=== PATIENT | female | born 1950 | race Caucasian/White ===

== ENCOUNTER 2016-12-15 22:26 | Outpatient (CLI) | payer BC | END 2016-12-15 22:27 | disposition EMS.NT | LOC: EMS 22:26 | PROVIDERS: ATTEND Surgery | DX: L29.9 Pruritus, unspecified (principal); R23.2 Flushing; R60.9 Edema, unspecified ==

== ENCOUNTER 2016-12-15 23:39 | Emergency (ER) | payer BC ==
--- NOTE | 2016-12-15 23:47 | ED Physician Documentation ---
PD HPI SKIN - Stated complaint Stated Complaint: RASH,ITCHING,TONGUE SWELLING - Chief complaint Chief Complaint: Allergic Rx - History obtained from History obtained from: Patient - History of Present Illness Timing - onset: Today Timing - duration: Hours (1) Timing - details: Abrupt onset (She had peanut butter sandwich (which she has commonly) and then a lot of pistachios, which she eats only about once a year. Then went outside to work in garden weeds/ weed wacking. She had onset of diffuse itching and then hives, and then noted feeling of swelling of her tongue. Talked with Nurse Advise and referred to ED. She took 3 tablets of Benadryl at home and is noting decreasing swelling and hives enroute/arriving here.) Location: Face, Bodywide Quality / character: Itchy, Discolored (red), Swelling, Other (associated with swelling of her tongue and some dyspnea. 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 denies: Sore throat Cardiac: denies: Chest pain / pressure, Palpitations Respiratory: denies: Cough, Wheezing GI: denies: Nausea, Vomiting Skin: reports: Rash Neurologic: denies: Near syncope PD PAST MEDICAL HISTORY - Past Medical History Cardiovascular: Hypertension Neuro: Other ([place]) Endocrine/Autoimmune: None - Past Surgical History Past Surgical History: Yes - Present Medications Home Medications: Ambulatory Orders Medication Instructions Recorded Confirmed Aspirin [Adult Low Dose Aspirin EC] 81 mg PO DAILY 06/30/15 12/15/16 Benazepril HCl [Lotensin] 20 mg PO DAILY 06/30/15 12/15/16 - Allergies Allergies/Adverse Reactions: Allergies Allergy/AdvReac Type Severity Reaction Status Date / Time Sulfa (Sulfonamide AdvReac Unknown Verified 06/30/15 18:58 Antibiotics) - Social History Does the pt smoke?: No Smoking Status: Never smoker Does the pt drink ETOH?: Yes Does the pt have substance abuse?: No - Family History Family history: reports: Non contributory - Immunizations Immunizations are current?: Yes PD ED PE NORMAL - Vitals Vital signs reviewed: Yes - General General: Alert and oriented X 3, No acute distress, Well developed/nourished - HEENT HEENT: Moist mucous membranes, Pharynx benign, Other (tongue without obvious swelling right now, but she says it feels just slightly big still. ) - Neck Neck: Supple, no meningeal sign, No adenopathy - Cardiac Cardiac: RRR, No murmur - Respiratory Respiratory: Clear bilaterally - Abdomen Abdomen: Soft, Non tender - Derm Derm: Normal color, Warm and dry, Other (mild redness in blotches, not raised, c /w improving hives. ) Results - Vitals Vitals: Vital Signs - 24 hr 12/15/16 12/16/16 23:42 00:51 Temperature 37 C Heart Rate 88 81 Respiratory 18 20 Rate Blood Pressure 161/54 H 142/76 H O2 Saturation 96 99 Oxygen O2 Source Room air PD MEDICAL DECISION MAKING - ED course Complexity details: considered differential (timing seems related to the Pistachios though she did go out working with weeds/weed whacker after that. Could be either or both as triggers. Given these likely triggers I don't think it would then be related to her BP med AMADOR-I, though I did discuss it with her as potential if recurring symptoms without other exposures. She did not want to stop it at this point. I referenced [facility]oyaMoya and did not see contraindication for short course/dose of steroids, so gave dose here. ), d/w patient Departure - Departure Disposition: 01 Home, Self Care Clinical Impression: Allergic reaction Qualifiers: Encounter type: initial encounter Qualified Code(s): T78.40XA - Allergy, unspecified, initial encounter Condition: Stable Record reviewed to determine appropriate education?: Yes Instructions: ED Allergic Reaction General Other Follow-Up: LILA HAMPTON MD [Primary Care Provider] - Comments: Avoid Pistachios certainly, and also stay out of the yardwork for a day or two, in case it was something there that triggered the reaction. Benadryl dose 25 mg every 6 hours if needed for persistent rash/itch. Recheck if not improved completely over couple of days. Discharge Date/Time: 12/16/16 00:52
[2016-12-16] MEDS ORDERED: CETIRIZINE 10 MG TABLET PO STA (00:10)
[2016-12-16] MEDS ORDERED: CETIRIZINE 10 MG TABLET ONE (00:19)
[2016-12-16] MEDS ORDERED: DEXAMETHASONE 10 MG/ML VIAL PO STA (00:34)
[2016-12-16] MEDS ORDERED: CHERRY SYRUP 10 ML UDC PO ONE (00:50)
[2016-12-16] MEDS ORDERED: DEXAMETHASONE 10 MG/ML VIAL ONE (00:50)
[2016-12-16 00:52] VITALS: BP 142/76
== END 2016-12-16 00:52 | disposition home or self-care (01) ==
LOC: ED 23:39
DX: T78.40XA Allergy, unspecified, initial encounter (principal); X58.XXXA Exposure to other specified factors, initial encounter; I10 Essential (primary) hypertension; Z79.82 Long term (current) use of aspirin
CPT/HCPCS: 99283; A9270

== ENCOUNTER 2019-08-25 11:06 | Emergency (ER) | payer MEDICARE, OTHER ==
[2019-08-25] MEDS ORDERED: BUFFERED LIDOCAINE 10 ML SYRINGE SUBQ STA (11:30)
--- NOTE | 2019-08-25 13:11 | XRAY Report ---
Reason: 5th PIP injury Procedure Date: 08/25/2019 Accession Number: [id number] / [id number] Procedure: XR - Finger(s) RT CPT Code: Final Report FULL RESULT: EXAM: RIGHT FIFTH DIGIT RADIOGRAPHY EXAM DATE: 08/25/2019 12:26 PM. CLINICAL HISTORY: 5th PIP injury. COMPARISON: None. TECHNIQUE: 3 views. FINDINGS: Bones: Normal. No fracture or bone lesion. Joints: There appears to be postinflammatory fusion across the fifth DIP joint. Joint space narrowing and marginal arthrosis at the fifth PIP joint. Soft Tissues: Surrounding soft tissue swelling. No radiopaque foreign material. IMPRESSION: Postinflammatory fusion across the DIP joint. Joint space narrowing and marginal arthrosis at the fifth PIP joint. Surrounding soft tissue swelling. No radiopaque foreign material. RADIA
--- NOTE | 2019-08-25 13:20 | ED Physician Documentation ---
PD HPI UPPER EXT INJURY - Stated complaint Stated Complaint: LAC ON R WRIST - Chief complaint Chief Complaint: Laceration - History obtained from History obtained from: Patient - History of Present Illness Location: Right, Wrist Type of injury: Fall Where injury occurred: Home Timing - onset: Today Timing - duration: Minutes Timing - details: Abrupt onset, Still present Improved by: Rest, Immobilization Worsened by: Moving, Palpating Associated symptoms: No: Weakness, Numbness, Tingling Contributing factors: No: Anticoagulated Similar symptoms before: Diagnosis (laceration) Recently seen: Not recently seen - Additonal information Additional information: 68-year-old female fell in her garden today injuring her right wrist and her right fifth digit. She has a laceration to the wrist she is able flex and extend the wrist without difficulty has no pain to the wrist joint itself. There is swelling and tenderness to the right fifth digit she thought this was her arthritis until she looked at the finger and saw the swelling and discoloration. 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 : Other HEENT: None Musculoskeletal: None Derm: None - Past Surgical History Past Surgical History: Yes - Present Medications Home Medications: Ambulatory Orders Medication Instructions Recorded Confirmed Aspirin [Adult Low Dose Aspirin EC] 81 mg PO DAILY 06/30/15 12/15/16 Benazepril HCl [Lotensin] 20 mg PO DAILY 06/30/15 12/15/16 - Allergies Allergies/Adverse Reactions: Allergies Allergy/AdvReac Type Severity Reaction Status Date / Time Sulfa (Sulfonamide AdvReac Unknown Verified 08/25/19 11:16 Antibiotics) - Social History Does the pt smoke?: No Smoking Status: Never smoker Does the pt drink ETOH?: Yes Does the pt have substance abuse?: No - Immunizations Immunizations are current?: Yes PD ED PE NORMAL - Vitals Vital signs reviewed: Yes (hypertensive ) - General General: Alert and oriented X 3, No acute distress, Well developed/nourished - HEENT HEENT: Atraumatic, PERRL, EOMI - Respiratory Respiratory: No respiratory distress - Derm Derm: Normal color, Warm and dry, No rash - Extremities Extremities: Other (There is swelling and ecchymosis to the right fifth PIP joint. She is able to flex at that joint and the distal neurovascular components are intact. She has specifically pain to the lateral aspect of the joint and the MCP joint is without injury. 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 Joint space narrowing and marginal arthrosis at the fifth PIP joint. Surrounding soft tissue swelling. No radiopaque foreign material.), EMP read indepedently, See rad report Procedures - Laceration (location) Right wrist Length in cm: 3 Wound type: Linear, Into subcut fat, Clean Neurovascular status: Sensory intact, Motor intact, Vascular intact Tendon involvement: Tendon intact Anesthesia: Lidocaine 1%, With bicarb Wound Preparation: Hibiclens, Irrigated copiously NS, Wound explored, To the base Skin layer closure: Nylon, Interrupted, Size #-0 - enter number (4-0) Other: Patient tolerated well, No complications, Neurovascular intact, Dressing applied, Tetanus UTD Complexity: Simple PD MEDICAL DECISION MAKING - ED course Complexity details: reviewed results, re-evaluated patient, considered differential, d/w patient ED course: 68-year-old female with a fall and injury to her right wrist and fifth digit has no evidence of fracture on x-ray examination of the digit and her wound is sutured with 4-0 nylon. She tolerates this well believes she is up-to-date on her tetanus. Departure - Departure Disposition: 01 Home, Self Care Clinical Impression: Laceration of right wrist Qualifiers: Encounter type: initial encounter Qualified Code(s): S61.511A - Laceration without foreign body of right wrist, initial encounter Sprain of finger, right Qualifiers: Encounter type: initial encounter Finger: little finger Sprain of finger site: interphalangeal joint Qualified Code(s): S63.636A - Sprain of interphalangeal joint of right little finger, initial encounter Condition: Stable Instructions: ED Laceration Hand, ED Sprain Finger Follow-Up: Rafat Soliman MD [Primary Care Provider] - Comments: Sutures will need to be removed in 7 to 10 days. Discharge Date/Time: 08/25/19 13:31
[2019-08-25 13:31] VITALS: BP 178/84
== END 2019-08-25 13:31 | disposition home or self-care (01) ==
LOC: ED 11:06
DX: S61.511A Laceration without foreign body of right wrist, initial encounter (principal); S63.636A Sprain of interphalangeal joint of right little finger, initial encounter; W01.118A Fall on same level from slipping, tripping and stumbling with subsequent striking against other sharp object, initial encounter; W26.8XXA Contact with other sharp object(s), not elsewhere classified, initial encounter; Y93.H2 Activity, gardening and landscaping; Y92.009 Unspecified place in unspecified non-institutional (private) residence as the place of occurrence of the external cause; I10 Essential (primary) hypertension
CPT/HCPCS: 12002; 73140; 99283; 99284

== ENCOUNTER 2020-09-15 08:00 | Outpatient (CLI) | payer MEDICARE, OTHER | END 2020-09-15 23:59 | disposition home or self-care (01) | LOC: LAB.S 08:00 | PROVIDERS: ATTEND Physician Assistant Medical | DX: N39.0 Urinary tract infection, site not specified (principal); R31.9 Hematuria, unspecified; R30.0 Dysuria | CPT/HCPCS: 87077; 87086; 87181 ==

== ENCOUNTER 2020-10-11 08:00 | Outpatient (CLI) | payer MEDICARE, OTHER | END 2020-10-11 23:59 | disposition home or self-care (01) | LOC: LAB.S 08:00 | PROVIDERS: ATTEND Physician Assistant Medical | DX: N39.0 Urinary tract infection, site not specified (principal); R30.0 Dysuria; R31.9 Hematuria, unspecified | CPT/HCPCS: 87086; 87181 ==

== ENCOUNTER 2021-03-28 15:30 | Outpatient (CLI) | payer MEDICARE, OTHER ==
--- NOTE | 2021-03-28 16:42 | Ultrasound Report ---
PROCEDURE: Ext Limited Non Vascular INDICATIONS: SKIN MASS OF LEG TECHNIQUE: Real-time scanning was performed of the left upper thigh, with image documentation. COMPARISON: None. FINDINGS: Multiple grayscale and color Doppler images were acquired over the palpable area of smita zapata concern noted to be in the anterior, superior left thigh. There is a superficial, subcutaneous isoe choic mass measuring 2.9 cm in long axis dimension and 2.4 x 1.0 cm in transverse dimension. This is wider than tall without posterior acoustic features. No disturbed parenchymal echotexture. Peripheral vascularity present. 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 Recommend continued clinical surveillance with follow-up imaging as clinically necessary. Reviewed by: Kolton Tavera MD on 03/28/2021 4:41 PM PST Approved by: Kolton Tavera MD on 03/28/2021 4:41 PM PST Station ID: [id number]
== END 2021-03-28 15:31 | disposition home or self-care (01) ==
LOC: DI 15:30
PROVIDERS: ATTEND Internal Medicine
DX: R22.42 Localized swelling, mass and lump, left lower limb (principal)

== ENCOUNTER 2021-05-15 16:48 | Outpatient (CLI) | payer MEDICARE, OTHER ==
[2021-05-15 21:15] LABS: BASOPHILS # (AUTO) 0.1 10^3/uL (0.0-0.1); EOSINOPHILS # (AUTO) 0.2 10^3/uL (0.0-0.7); HCT - HEMATOCRIT 44.8 % (37.0-47.0); HGB - HEMOGLOBIN 14.7 g/dL (12.0-16.0); LYMPHOCYTES # (AUTO) 2.1 10^3/uL (1.5-3.5); LYMPHOCYTES % (AUTO) 26.9 %; MEAN CORPUSCULAR HEMOGLOBIN 28.7 pg (27.0-31.0); MEAN CORPUSCULAR HGB CONC 32.8 g/dL (32.0-36.0); MEAN CORPUSCULAR VOLUME 87.3 fL (81.0-99.0); MEAN PLATELET VOLUME 10.5 fL (7.9-10.8); MONOCYTES # (AUTO) 0.5 10^3/uL (0.0-1.0); MONOCYTES % (AUTO) 6.6 %; NEUTROPHILS # (AUTO) 4.8 10^3/uL (1.5-6.6); NEUTROPHILS % (AUTO) 62.2 %; PLT - PLATELET COUNT 254 10^3/uL (130-450); RED BLOOD COUNT 5.13 10^6/uL (4.20-5.40); RED CELL DISTRIBUTION WIDTH 13.2 % (12.0-15.0); WHITE BLOOD COUNT 7.6 x10^3/uL (4.8-10.8)
[2021-05-15 21:16] LABS: FOLATE 7.7 ng/mL (5.90 - >24.8); THYROID STIMULATING HORMONE 2.74 uIU/mL (0.34-5.60)
== END 2021-05-15 16:49 | disposition home or self-care (01) ==
LOC: LAB 16:48
PROVIDERS: ATTEND Internal Medicine
DX: R53.1 Weakness (principal)
CPT/HCPCS: 36415; 82607; 82746; 84443; 85025

== ENCOUNTER 2021-06-12 14:56 | Outpatient (CLI) | payer MEDICARE, OTHER ==
[2021-06-13 11:28] LABS: ESTIMATED AVERAGE GLUCOSE 148 mg/dL (70-100); HEMOGLOBIN A1c% 6.8 % (4.27-6.07)
== END 2021-06-12 14:57 | disposition home or self-care (01) ==
LOC: LAB.S 14:56
PROVIDERS: ATTEND Internal Medicine
DX: M79.672 Pain in left foot (principal); R73.03 Prediabetes
CPT/HCPCS: 36415; 83036

== ENCOUNTER 2021-08-22 08:00 | Outpatient (CLI) | payer MEDICARE, OTHER ==
[2021-08-22 14:44] LABS: BASOPHILS # (AUTO) 0.1 10^3/uL (0.0-0.1); BASOPHILS % (AUTO) 1.2 %; EOSINOPHILS # (AUTO) 0.3 10^3/uL (0.0-0.7); EOSINOPHILS % (AUTO) 3.9 %; HCT - HEMATOCRIT 44.1 % (37.0-47.0); HGB - HEMOGLOBIN 14.2 g/dL (12.0-16.0); LYMPHOCYTES # (AUTO) 1.7 10^3/uL (1.5-3.5); LYMPHOCYTES % (AUTO) 23.2 %; MEAN CORPUSCULAR HEMOGLOBIN 28.3 pg (27.0-31.0); MEAN CORPUSCULAR HGB CONC 32.2 g/dL (32.0-36.0); MEAN CORPUSCULAR VOLUME 87.8 fL (81.0-99.0); MONOCYTES # (AUTO) 0.6 10^3/uL (0.0-1.0); MONOCYTES % (AUTO) 7.7 %; NEUTROPHILS # (AUTO) 4.6 10^3/uL (1.5-6.6); NEUTROPHILS % (AUTO) 63.7 %; PLT - PLATELET COUNT 289 10^3/uL (130-450); RED BLOOD COUNT 5.02 10^6/uL (4.20-5.40); RED CELL DISTRIBUTION WIDTH 13.3 % (12.0-15.0); WHITE BLOOD COUNT 7.3 x10^3/uL (4.8-10.8)
[2021-08-22 15:00] LABS: ALBUMIN 3.8 g/dL (3.2-5.5); ALBUMIN/GLOBULIN RATIO 1.2 (1.0-2.2); ALKALINE PHOSPHATASE 81 IU/L (42-121); ALT ALANINE AMINOTRANSFERASE 22 IU/L (10-60); AST ASPARTATE AMINOTRANSFERASE 18 IU/L (10-42); BILIRUBIN,TOTAL 0.9 mg/dL (0.2-1.0); BUN - BLOOD UREA NITROGEN 15 mg/dL (6-20); CALCIUM 9.3 mg/dL (8.5-10.3); CARBON DIOXIDE - CO2 30 mmol/L (21-32); CHLORIDE 100 mmol/L (101-111); CREATININE 0.9 mg/dL (0.4-1.0); GFR - MDRD 62 (>89); GLUCOSE 123 mg/dL (70-100); LIPASE 67 U/L (22-51); SODIUM 139 mmol/L (135-145); TOTAL PROTEIN 7.1 g/dL (6.7-8.2)
[2021-08-22 15:13] LABS: CRP - C-REACTIVE PROTEIN < 1.0 mg/dL (0-1.0)
== END 2021-08-22 23:59 | disposition home or self-care (01) ==
LOC: LAB.S 08:00
PROVIDERS: ATTEND Registered Nurse
DX: R53.81 Other malaise (principal); R53.83 Other fatigue; R30.0 Dysuria; R10.84 Generalized abdominal pain
CPT/HCPCS: 36415; 80053; 83690; 85025; 85651; 86140; 87086

== ENCOUNTER 2022-01-30 17:20 | Outpatient (CLI) | payer MEDICARE, OTHER | END 2022-01-30 17:21 | disposition EMS.NT | LOC: EMS 17:20 | DX: R19.7 Diarrhea, unspecified (principal); R42 Dizziness and giddiness; U07.1 COVID-19 ==

== ENCOUNTER 2022-05-09 07:00 | Outpatient (CLI) | payer MEDICARE, OTHER ==
[2022-05-09 16:53] LABS: BILIRUBIN,URINE NEGATIVE (NEGATIVE); GLUCOSE, URINE (UA) NEGATIVE (NEGATIVE); KETONES,URINE (UA) NEGATIVE (NEGATIVE); LEUKOCYTE ESTERASE, URINE SMALL (NEGATIVE); NITRITE,URINE NEGATIVE (NEGATIVE); OCCULT BLOOD,URINE NEGATIVE (NEGATIVE); PROTEIN,URINE NEGATIVE (NEGATIVE); UROBILINOGEN,URINE 0.2 (NORMAL) E.U./dL (NORMAL)
[2022-05-09 16:56] LABS: CLARITY,URINE CLEAR (CLEAR)
[2022-05-09 17:15] LABS: BACTERIA,URINE Few /HPF (None Seen); RBC,URINE 0-5 /HPF (0-5); SQUAMOUS EPITHELIAL CELL,UR RARE Squamous (<= Few)
== END 2022-05-09 23:59 | disposition home or self-care (01) ==
LOC: LAB.S 07:00
PROVIDERS: ATTEND Emergency Medicine
DX: R30.0 Dysuria (principal)
CPT/HCPCS: 81001; 87077; 87086; 87181

== ENCOUNTER 2023-01-12 08:00 | Outpatient (CLI) | payer MEDICARE, OTHER | END 2023-01-12 23:59 | disposition home or self-care (01) | LOC: LAB.S 08:00 | PROVIDERS: ATTEND Physician Assistant | DX: R30.0 Dysuria (principal) | CPT/HCPCS: 87086; 87181 ==

== ENCOUNTER 2023-03-01 08:00 | Outpatient (CLI) | payer MEDICARE, OTHER | END 2023-03-01 23:59 | disposition home or self-care (01) | LOC: LAB 08:00 | PROVIDERS: ATTEND Physician Assistant | DX: R30.0 Dysuria (principal) | CPT/HCPCS: 87086; 87181 ==

== ENCOUNTER 2023-03-22 08:00 | Outpatient (CLI) | payer MEDICARE, OTHER ==
--- NOTE | 2023-03-22 11:22 | XRAY Report ---
PROCEDURE: Knee 3 View RT INDICATIONS: RT KNEE PAIN TECHNIQUE: 3 views of the knee(s) were acquired. COMPARISON: None. FINDINGS: Bones: No fractures or dislocations. No suspicious bony lesions. Tricompartment osteophytosis. Se shaunna medial compartment joint space loss. Soft tissues: Trace knee joint effusion. No suspicious soft tissue calcifications or masses. IMPRESSION: No acute bony abnormality. Severe degenerative arthritis of the right knee. Reviewed by: Santosh Denis MD on 03/22/2023 11:21 AM PST Approved by: Santosh Denis MD on 03/22/2023 11:21 AM PST Station ID: [id number]
[2023-03-22 15:31] LABS: BILIRUBIN,URINE NEGATIVE (NEGATIVE); GLUCOSE, URINE (UA) NEGATIVE (NEGATIVE); KETONES,URINE (UA) NEGATIVE (NEGATIVE); LEUKOCYTE ESTERASE, URINE NEGATIVE (NEGATIVE); NITRITE,URINE NEGATIVE (NEGATIVE); OCCULT BLOOD,URINE NEGATIVE (NEGATIVE); PH,URINE 6.5 PH (5.0-7.5); PROTEIN,URINE NEGATIVE (NEGATIVE); UROBILINOGEN,URINE 0.2 (NORMAL) E.U./dL (NORMAL)
[2023-03-22 15:42] LABS: BACTERIA,URINE Rare /HPF (None Seen); CLARITY,URINE CLEAR (CLEAR); RBC,URINE 0-5 /HPF (0-5); SQUAMOUS EPITHELIAL CELL,UR MOD Squamous (<= Few); WBC,URINE 0-3 /HPF (0-5)
== END 2023-03-22 23:59 | disposition home or self-care (01) ==
LOC: DI.S 08:00
PROVIDERS: ATTEND Physician Assistant Medical
DX: M17.11 Unilateral primary osteoarthritis, right knee (principal); R39.15 Urgency of urination
CPT/HCPCS: 81001; 87086

== ENCOUNTER 2023-09-11 13:08 | Outpatient (CLI) | payer MEDICARE, OTHER ==
[2023-09-11 19:37] LABS: BASOPHILS # (AUTO) 0.1 10^3/uL (0.0-0.1); BASOPHILS % (AUTO) 1.1 %; EOSINOPHILS # (AUTO) 0.2 10^3/uL (0.0-0.7); EOSINOPHILS % (AUTO) 2.3 %; HCT - HEMATOCRIT 46.2 % (37.0-47.0); HGB - HEMOGLOBIN 14.5 g/dL (12.0-16.0); LYMPHOCYTES # (AUTO) 2.2 10^3/uL (1.5-3.5); LYMPHOCYTES % (AUTO) 27.8 %; MEAN CORPUSCULAR HEMOGLOBIN 27.9 pg (27.0-31.0); MEAN CORPUSCULAR HGB CONC 31.4 g/dL (32.0-36.0); MEAN PLATELET VOLUME 10.9 fL (7.9-10.8); MONOCYTES # (AUTO) 0.6 10^3/uL (0.0-1.0); MONOCYTES % (AUTO) 7.8 %; NEUTROPHILS # (AUTO) 4.8 10^3/uL (1.5-6.6); NEUTROPHILS % (AUTO) 60.9 %; PLT - PLATELET COUNT 252 10^3/uL (130-450); RED BLOOD COUNT 5.19 10^6/uL (4.20-5.40); RED CELL DISTRIBUTION WIDTH 12.9 % (12.0-15.0); WHITE BLOOD COUNT 7.9 x10^3/uL (4.8-10.8)
[2023-09-11 19:38] LABS: BILIRUBIN,URINE NEGATIVE (NEGATIVE); GLUCOSE, URINE (UA) NEGATIVE (NEGATIVE); KETONES,URINE (UA) NEGATIVE (NEGATIVE); LEUKOCYTE ESTERASE, URINE NEGATIVE (NEGATIVE); NITRITE,URINE NEGATIVE (NEGATIVE); OCCULT BLOOD,URINE NEGATIVE (NEGATIVE); PH,URINE 5.5 PH (5.0-7.5); PROTEIN,URINE NEGATIVE (NEGATIVE); UROBILINOGEN,URINE 0.2 (NORMAL) E.U./dL (NORMAL)
[2023-09-11 19:53] LABS: BACTERIA,URINE Few /HPF (None Seen); CLARITY,URINE CLEAR (CLEAR); RBC,URINE 0-5 /HPF (0-5); SQUAMOUS EPITHELIAL CELL,UR RARE Squamous (<= Few); WBC,URINE 0-3 /HPF (0-5)
[2023-09-11 20:28] LABS: ALBUMIN 4.1 g/dL (3.2-5.5); ALBUMIN/GLOBULIN RATIO 1.3 (1.0-2.2); BILIRUBIN,TOTAL 0.6 mg/dL (0.2-1.0); CALCIUM 9.9 mg/dL (8.5-10.3); CREATININE 0.9 mg/dL (0.6-1.3); POTASSIUM 4.2 mmol/L (3.5-4.5); TOTAL PROTEIN 7.3 g/dL (6.4-8.9)
== END 2023-09-11 13:09 | disposition home or self-care (01) ==
LOC: LAB.S 13:08
PROVIDERS: ATTEND Nurse Practitioner
DX: R53.83 Other fatigue (principal); R30.0 Dysuria
CPT/HCPCS: 36415; 80053; 81001; 85025; 87086